=== PATIENT | female | born 1945 | race Caucasian/White ===

== ENCOUNTER 2024-08-19 06:09 | Day surgery (SDC) | payer MEDICARE ==
[2024-08-17 14:56] VITALS: BMI 28.3
[2024-08-19] MEDS: IV FLUID CONTINUATION 1,000 ML IV ONE (06:20)
[2024-08-19 06:31] VITALS: RESP 16; TEMP 97.1
[2024-08-19] MEDS: LACTATED RINGERS 1,000 ML IV SCH (06:46)
[2024-08-19] MEDS ORDERED: LIDOCAINE 1% INJ 10MG/ML (20 ML MDV) ONE (07:00)
[2024-08-19] MEDS ORDERED: PROPOFOL 10 MG/ML 20 ML VIAL IV ONE (07:00)
--- NOTE | 2024-08-19 07:26 | P.PCN ---
Date of Procedure: 08/19/24 Procedure(s) Performed: Brief history: Patient is a pleasant 8-year-old white female scheduled for an elective upper endoscopy as well as colonoscopy as a part of evaluation of GERD, recent episode of acute GI bleed and abdominal CAT scan that showed thickening of the sigmoid colon. Procedure performed: Esophagogastroduodenoscopy with biopsy Colonoscopy with argon possible coagulation and snare polypectomy Preoperative diagnosis: GERD Recent GI bleed Abnormal CAT scan Anesthesia: MAC Procedure: After informed consent was obtained from the patient was brought into the endoscopy unit and IV sedation was administered by anesthesia under continuous monitoring. Initially upper endoscopy was done. The Olympus GF 160 video endoscope was inserted inserted into the mouth and esophagus intubated without any difficulty and was gradually advanced into the stomach and duodenum and carefully examined. The bulb and second part of the duodenum appeared normal. The scope was then withdrawn into the stomach adequately insufflated with air and upon careful examination the antrum and body had linear erosions consistent with gastritis and biopsies were done from this area. Mucosa of the, cardia and fundus appeared normal. The scope was then withdrawn into the esophagus. The GE junction was located at 40 cm to the incisors. It appeared regular with no erythema erosions or ulcerations. Rest of the esophagus appeared normal. Patient tolerated the procedure well. At this time the patient continued to remain sedation. Initial digital rectal examination was normal. Olympus CF 160 video colonoscope was then inserted into the rectum and gradually advanced to the cecum without any difficulty. Careful examination was performed as the scope was gradually being withdrawn. The prep was excellent. The cecum, 1 cm nonbleeding arteriovenous malformation that was coagulated using argon plasma. Rest of the ascending colon, transverse colon, descending colon, appeared normal. In the sigmoid colon there was a 5 mm polyp that was removed by snare polypectomy. Sigmoid colon and rectum appeared normal. Scattered sigmoid diverticulosis seen. Retroflexion was performed in the rectum and no lesions were noted. Patient tolerated the procedure well. Impression: 1. Upper endoscopy revealed linear erosions in the proximal body of the stomach status post biopsy 2. Colonoscopy revealed: 1 cm nonbleeding arteriovenous malformation the base of the cecum status post argon plasma coagulation 5 mm sigmoid polyp status post snare polypectomy Scattered sigmoid diverticulosis Recommendations: Findings of this examination were discussed with the patient as well as her family. She was advised to follow-up with the biopsy results. If the biopsy reveals adenoma she can have repeat colonoscopy in 5 years.
[2024-08-19 07:50] VITALS: BP 109/62; PULSE 84
== END 2024-08-19 08:16 ==
LOC: ORWHC2ENDO 06:09
PROVIDERS: ATTEND Internal Medicine Gastroenterology
DX: Q27.30 Arteriovenous malformation, site unspecified (principal); K57.30 Diverticulosis of large intestine without perforation or abscess without bleeding; K63.5 Polyp of colon; K25.9 Gastric ulcer, unspecified as acute or chronic, without hemorrhage or perforation; K31.7 Polyp of stomach and duodenum; K21.9 Gastro-esophageal reflux disease without esophagitis; I10 Essential (primary) hypertension; E78.5 Hyperlipidemia, unspecified; Z79.899 Other long term (current) drug therapy; Z88.0 Allergy status to penicillin; Z91.040 Latex allergy status
CPT/HCPCS: 88305; 45385; 43239; 45388; J2003; J2704